=== PATIENT | female | born 1990 | race Caucasian/White ===

== ENCOUNTER 2017-04-05 00:23 | Emergency (ER) | payer OTHER ==
--- NOTE | 2017-04-05 03:20 | ED CLINICAL REPORT ---
Clinical Report - Physicians/Mid Levels [facility] [address] [place] [place] [address] 04/05/2017 0:24 Patient: ANTHONY THOMAS Time Seen: 00:26. Arrived- By ambulance. Historian- patient and EMS personnel. HISTORY OF PRESENT ILLNESS Chief Complaint: Injury to the left ankle. The injury happened just prior to arrival. The patient sustained a twisting injury. Occurred at home. Patient is experiencing severe pain. Patient denies injury to the head or neck. No other injury. REVIEW OF SYSTEMS The patient complains of pain on weight bearing. She has had swelling. No weakness, suspected foreign body or skin laceration. All systems otherwise negative, except as recorded above. PAST HISTORY See nurses notes. Surgeries: No history of previous surgery. Additional Surgeries: no known surgeries. Medications: None. Allergies: No Known Drug Allergy. SOCIAL HISTORY Smoker- current status unknown. Occasional alcohol use. Last drink was just prior to arrival. Under the influence in E.D. No drug use. Is a local resident. ADDITIONAL NOTES The nursing notes have been reviewed. PHYSICAL EXAM Vital Signs: 04/05/2017 00:29 BP: 129/80. HR: 98. RR: 20. O2 saturation: 100%. Temp: 98.9 F. Pain level now: 7/10. Appearance: Alert. Oriented X3. Patient in moderate distress. Head: Head atraumatic. Eyes: Pupils equal, round and reactive to light. Eyes normal inspection. No scleral icterus or pale conjunctivae. ENT: Pharynx normal. No injury to the nose. No pharyngeal erythema or tonsillar exudate. The mucous membranes are not dry. Neck: Normal inspection. Neck supple. C-spine non-tender. CVS: Normal heart rate and rhythm. Heart sounds normal. Pulses normal. Respiratory: No respiratory distress. Breath sounds normal. Chest nontender. Abdomen: No visible injury. Soft and nontender. Back: Normal inspection. No tenderness. ROM normal. Skin: Skin intact. Skin warm and dry. Extremities: Left ankle: moderate tenderness and swelling and small ecchymosis localized to the lateral ligaments and malleolus, medial ligaments and malleolus, anterior ankle and proximal foot. Limited ROM secondary to pain. Neurovascular intact distally. No foreign body. No foot injury. Extremities otherwise negative. ( no proximal fibular tenderness). Gait: Gait not tested due to pain. Neuro, Vascular and Tendons: Vascular status intact. Sensation intact. Motor intact. Neuro: Oriented X 3. No motor deficit. LABS, X-RAYS, AND EKG Lt Ankle X-ray: (possible posterior malleolus fracture). Views: AP, lateral, mortise and oblique. Technique: good. The X-rays were interpreted contemporaneously by me. Note - Special Studies: CT left ankle without contrast: There is anterior as well as lateral greater than medial malleolar soft tissue swelling. There is a lucency within the posterior malleolus as well as a mild depression of the posterior distal tibial articular surface. A nondisplaced posterior malleolar fx is not excluded. Pt has a normal variant os trigonum. There is cortical irregularity assoc with post tibialis and os trigonum suggestive of degenerative changes. benign appearing area of increased density within the anterolateral distal tibial metaphysis. Note - Tests: (Breathalyzer: 0.112). PROGRESS AND PROCEDURES Splint Application: Posterior short leg fiberglass splint applied to left lower extremity. Splint applied by tech with direct supervision by the ED physician. Reassessed extremity following splint application. Neurovascular intact. Course of Care: Dilaudid 1 mg with Phenergan 25 mg IM given. Subtle fracture likely on plain film - CT performed and suggests posterior malleolus fx but not definitive. Pt splinted and will be nonweightbearing Patient is stable. Physical exam findings are improved. Symptoms much better. Patient/family counseled. Old ED records reviewed. Disposition: Discharged. Condition: stable and improved. CLINICAL IMPRESSION Sprain of the tibiofibular, calcaneofibular, deltoid and talofibular ligament of the left ankle. Uncomplicated alcohol intoxication. Possible closed non-displaced right medial malleolus fracture (possible posterior malleolus fracture). Fall from stairs and on same level by tripping. INSTRUCTIONS Apply ice. Use crutches until better and until released. Wear fiberglass splint until released. Elevate affected areas above chest level. Do not work for three days. Warnings: GENERAL WARNINGS: Return or contact your physician immediately if your condition worsens or changes unexpectedly, if not improving as expected, or if other problems arise. Prescription Medications: Hydrocodone/APAP 5mg / 325mg: take 1-2 orally every 8 hours as needed for pain. Dispense ten (10). No refill. OTC Medications: Acetaminophen (available over the counter): take according to label instructions. Motrin (available over the counter): take according to label instructions. Follow-up: Follow up with your doctor tomorrow. Follow-up with: Primo Handley M.D., Ortho, , [address], [facility] [address] Follow up in about two days. Follow-up with: Tacho Bosch DPM, Podiatry, , [address], [facility] [address] Follow up in about two days as needed. (Electronically signed by Travon Kinsey DO 04/06/2017 8:24)
--- NOTE | 2017-04-05 03:20 | ED CLINICAL REPORT ---
Clinical Report - Physicians/Mid Levels [facility] [address] [place] [address] 04/05/2017 0:24 Patient: ANTHONY THOMAS Time Seen: 00:26. Arrived- By ambulance. Historian- patient and EMS personnel. HISTORY OF PRESENT ILLNESS Chief Complaint: Injury to the left ankle. The injury happened just prior to arrival. The patient sustained a twisting injury. Occurred at home. Patient is experiencing severe pain. Patient denies injury to the head or neck. No other injury. REVIEW OF SYSTEMS The patient complains of pain on weight bearing. She has had swelling. No weakness, suspected foreign body or skin laceration. All systems otherwise negative, except as recorded above. PAST HISTORY See nurses notes. Surgeries: No history of previous surgery. Additional Surgeries: no known surgeries. Medications: None. Allergies: No Known Drug Allergy. SOCIAL HISTORY Smoker- current status unknown. Occasional alcohol use. Last drink was just prior to arrival. Under the influence in E.D. No drug use. Is a local resident. ADDITIONAL NOTES The nursing notes have been reviewed. PHYSICAL EXAM Vital Signs: 04/05/2017 00:29 BP: 129/80. HR: 98. RR: 20. O2 saturation: 100%. Temp: 98.9 F. Pain level now: 7/10. Appearance: Alert. Oriented X3. Patient in moderate distress. Head: Head atraumatic. Eyes: Pupils equal, round and reactive to light. Eyes normal inspection. No scleral icterus or pale conjunctivae. ENT: Pharynx normal. No injury to the nose. No pharyngeal erythema or tonsillar exudate. The mucous membranes are not dry. Neck: Normal inspection. Neck supple. C-spine non-tender. CVS: Normal heart rate and rhythm. Heart sounds normal. Pulses normal. Respiratory: No respiratory distress. Breath sounds normal. Chest nontender. Abdomen: No visible injury. Soft and nontender. Back: Normal inspection. No tenderness. ROM normal. Skin: Skin intact. Skin warm and dry. Extremities: Left ankle: moderate tenderness and swelling and small ecchymosis localized to the lateral ligaments and malleolus, medial ligaments and malleolus, anterior ankle and proximal foot. Limited ROM secondary to pain. Neurovascular intact distally. No foreign body. No foot injury. Extremities otherwise negative. ( no proximal fibular tenderness). Gait: Gait not tested due to pain. Neuro, Vascular and Tendons: Vascular status intact. Sensation intact. Motor intact. Neuro: Oriented X 3. No motor deficit. LABS, X-RAYS, AND EKG Lt Ankle X-ray: (possible posterior malleolus fracture). Views: AP, lateral, mortise and oblique. Technique: good. The X-rays were interpreted contemporaneously by me. Note - Special Studies: CT left ankle without contrast: There is anterior as well as lateral greater than medial malleolar soft tissue swelling. There is a lucency within the posterior malleolus as well as a mild depression of the posterior distal tibial articular surface. A nondisplaced posterior malleolar fx is not excluded. Pt has a normal variant os trigonum. There is cortical irregularity assoc with post tibialis and os trigonum suggestive of degenerative changes. benign appearing area of increased density within the anterolateral distal tibial metaphysis. Note - Tests: (Breathalyzer: 0.112). PROGRESS AND PROCEDURES Splint Application: Posterior short leg fiberglass splint applied to left lower extremity. Splint applied by tech with direct supervision by the ED physician. Reassessed extremity following splint application. Neurovascular intact. Course of Care: Dilaudid 1 mg with Phenergan 25 mg IM given. Subtle fracture likely on plain film - CT performed and suggests posterior malleolus fx but not definitive. Pt splinted and will be nonweightbearing Patient is stable. Physical exam findings are improved. Symptoms much better. Patient/family counseled. Old ED records reviewed. Disposition: Discharged. Condition: stable and improved. CLINICAL IMPRESSION Sprain of the tibiofibular, calcaneofibular, deltoid and talofibular ligament of the left ankle. Uncomplicated alcohol intoxication. Possible closed non-displaced right medial malleolus fracture (possible posterior malleolus fracture). Fall from stairs and on same level by tripping. INSTRUCTIONS Apply ice. Use crutches until better and until released. Wear fiberglass splint until released. Elevate affected areas above chest level. Do not work for three days. Warnings: GENERAL WARNINGS: Return or contact your physician immediately if your condition worsens or changes unexpectedly, if not improving as expected, or if other problems arise. Prescription Medications: Hydrocodone/APAP 5mg / 325mg: take 1-2 orally every 8 hours as needed for pain. Dispense ten (10). No refill. OTC Medications: Acetaminophen (available over the counter): take according to label instructions. Motrin (available over the counter): take according to label instructions. Follow-up: Follow up with your doctor tomorrow. Follow-up with: Primo Handley M.D., Ortho, , [address], [facility] [address] Follow up in about two days. Follow-up with: Tacho Bosch DPM, Podiatry, , [address], [facility] [address] Follow up in about two days as needed. (Electronically signed by Travon Kinsey DO 04/06/2017 8:24)
--- NOTE | 2017-04-05 03:20 | ED ORDER SUMMARY ---
..... Patient: ANTHONY THOMAS OrderSheet [facility] VisitID: [id number] [place] [address] 26y, F Registration Date/Time: 04/05/2017 ORDER SHEET Weight: 108.8 kg (estimated) Allergies: No Known Drug Allergy GENERAL ORDERS: Ankle 3 or 4V Left Urgent (00:27 04/05/2017 PHutchinson DO) (Ack 0:29 RKaruga) (1:19 RFay) Breathalyzer (00:29 04/05/2017 PHutchinson DO) (1:16 RKaruga) CT Lower Extremity Without Contrast - Left (left ankle / distal tib/fib) Urgent (01:32 04/05/2017 PHWhereoscopeson DO) (Ack 1:35 RKaruga) (2:13 RFay) Splint (LE) (Left) (Short Leg Posterior) (Fiberglass) (03:16 04/05/2017 PHWhereoscopeson DO) Crutches (03:17 04/05/2017 PHNanoMedical Systemschinson DO) MEDICATION ORDERS: Acetaminophen PO 1,000 mg (NOW) (00:26 04/05/2017 PHWhereoscopeson DO) (Cancelled: Other0:[address] [facility]) Dilaudid IM 1 mg (HIGH ALERT MEDICATION, NOW) (00:31 04/05/[address] [facility]) (0:47 SSambou R.N.) Phenergan IM 25 mg (HIGH ALERT MEDICATION, NOW) (00:31 04/05/[address] [facility]) (0:47 SSambou R.N.) IV FLUIDS: ORDER SHEET NOTES: [Electronically signed by Sheriff Barbie Garnett (04:35 04/05/2017)] [Electronically signed by Travon Kinsey DO (08:24 04/06/2017)] [Electronically locked/signed by Sheriff Barbie Garnett (04:35 04/05/2017)]
--- NOTE | 2017-04-05 03:20 | ED NURSING NOTES ---
Clinical Report - Nurses [place] [address] [place] [address] 04/05/2017 0:24 Patient: ANTHONY THOMAS TRIAGE Triage time 00:31. Acuity: LEVEL 3. Chief Complaint: INJURY TO LEFT ANKLE. --00:39 Sheriff Garnett R.N. 00:29 04/05/17. BP: 129/80. HR: 98. RR: 20. O2 saturation: 100%. Temp: 98.9 F. Pain level now: 04/10. --00:39 Sheriff Garnett R.N. Weight: 108.8 kg estimated. Height/Length: 71 inches Per Patient. BMI: 33.5. --00:29 Sheriff Garnett R.N. Medications None. --00:37 Sheriff Garnett R.N. Allergies No Known Drug Allergy. --00:37 Sheriff Garnett R.N. History Arrived by private vehicle. Historian: patient. Accompanied by friend. This occurred (1 1/2 hours ago). Occurred at friend's house. ( missed a step and fell on left ankle.). PAST MEDICAL HX: Tetanus status: unknown. SURGERY HX: No history of previous surgery. SOCIAL HX: Smoker- current status unknown (3 cigarettes daily). Occasional alcohol use. No drug use. FALL RISK ASSESSMENT: Fall risk assessment completed. No fall risk identified. NUTRITIONAL RISK ASSESSMENT: The nutritional risk assessment revealed no deficiencies. FUNCTIONAL ASSESSMENT: Functional assessment: no impairments noted. LEARNING NEEDS ASSESSMENT: The learning needs assessment revealed no barriers. SKIN INTEGRITY ASSESSMENT: Skin integrity risk assessment completed. No skin integrity risk identified. --00:39 Sheriff Garnett R.N. PROBLEMS: Hypothyroidism. --00:38 Sheriff Garnett R.N. PHYSICAL ASSESSMENT To room via stretcher. GENERAL / NEURO / PSYCH: Oriented X 4. Appears in pain. EXTREMITIES: Capillary refill is less than 2 seconds in the extremities. Left posterior ankle: tenderness and swelling and lateral ankle: tenderness and swelling. SKIN: Skin intact. Skin is warm and dry. --00:52 Sheriff Garnett R.N. NURSING PROGRESS NOTES 00:47 04/05/2017 Dilaudid (HYDROmorphone HCl PF) IM 1 mg given. Given in the left deltoid. Allergies verified, confirmed 5 rights and sedative warning given to the patient. --00:47 Sheriff Garnett R.N. 00:47 04/05/2017 Phenergan (Promethazine HCl) IM 25 mg given. Given in the right deltoid. Allergies verified, confirmed 5 rights and sedative warning given to the patient. --00:47 Sheriff Garnett R.N. Two patient identifiers checked. Call light placed in reach. Side rails up x 2. Bed placed in lowest position. Brakes of bed on. --00:52 Sheriff Garnett R.N. BREATHALYZER: Breathalyzer (.112%). --01:17 Yanique Souza Short leg posterior fiberglass lower extremity splint applied to left ankle and foot by tech. Distal pulses intact, sensation intact and motor within normal limits. Patient fit with new crutches. Crutch training performed by tech; the patient demonstrated proper use. --04:06 Yanique Souza 04:25. ( Patient transported via wheelchair to car after discharge from ED). --04:31 Yanique Souza. DISPOSITION / DISCHARGE Condition at departure: stable. No learning barriers present. Discharge instructions provided and reviewed with the patient. Reviewed medication(s) side effects, precautions, dosing and course information. Prescription(s) given to the parent. Patient verbalized understanding. Written instructions provided in Bulgarian. --04:34 Sheriff Garnett R.N. Locked/Released at 04/05/2017 4:35 by Sheriff Garnett R.N.
--- NOTE | 2017-04-05 03:20 | ED ORDER SUMMARY ---
..... Patient: ANTHONY THOMAS OrderSheet [facility] VisitID: [id number] [place] [address] 26y, F Registration Date/Time: 04/05/2017 ORDER SHEET Weight: 108.8 kg (estimated) Allergies: No Known Drug Allergy GENERAL ORDERS: Ankle 3 or 4V Left Urgent (00:27 04/05/2017 PHutchinson DO) (Ack 0:29 RKaruga) (1:19 RFay) Breathalyzer (00:29 04/05/2017 PHutchinson DO) (1:16 RKaruga) CT Lower Extremity Without Contrast - Left (left ankle / distal tib/fib) Urgent (01:32 04/05/2017 PHShowEvidenceson DO) (Ack 1:35 RKaruga) (2:13 RFay) Splint (LE) (Left) (Short Leg Posterior) (Fiberglass) (03:16 04/05/2017 PHShowEvidenceson DO) Crutches (03:17 04/05/2017 PHVermont Transcochinson DO) MEDICATION ORDERS: Acetaminophen PO 1,000 mg (NOW) (00:26 04/05/2017 PHShowEvidenceson DO) (Cancelled: Other0:31 [facility] DO) Dilaudid IM 1 mg (HIGH ALERT MEDICATION, NOW) (00:31 04/05/2017 [facility] DO) (0:47 SSambou R.N.) Phenergan IM 25 mg (HIGH ALERT MEDICATION, NOW) (00:31 04/05/2017 [facility] DO) (0:47 SSambou R.N.) IV FLUIDS: ORDER SHEET NOTES: [Electronically signed by Sheriff Barbie Garnett (04:35 04/05/2017)] [Electronically signed by Travon Kinsey DO (08:24 04/06/2017)] [Electronically locked/signed by Sheriff Barbie Garnett (04:35 04/05/2017)]
--- NOTE | 2017-04-05 06:42 | DIAGNOSTIC IMAGING REPORT ---
PROCEDURE: XR ANKLE 3 OR 4 VIEWS - LEFT INDICATION: TRAUMA/INJURY TECHNIQUE: Four views. COMPARISON: None. FINDINGS: No fracture or dislocation. Normal ankle mortise. 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 Moderate soft tissue swelling laterally. IMPRESSION: 1. Soft tissue swelling laterally
--- NOTE | 2017-04-05 07:23 | DIAGNOSTIC IMAGING REPORT ---
PROCEDURE: CT LOWER EXT W/O CONTRAST-LEFT INDICATION: TRAUMA/INJURY TECHNIQUE: Axial scans with coronal and sagittal re-formations. COMPARISON: Left ankle x-ray 04/05/2017. FINDINGS: There is marked soft tissue swelling laterally. There is no acute fracture. Os trigonum with subcortical cystic changes of the os trigonum and posterior aspect of the talus consistent with degenerative changes. Benign sclerotic lesion in the distal tibial metaphysis. IMPRESSION: 1. Soft tissue swelling 2. No evidence of an acute fracture 3. Os trigonum with degenerative changes 4. Preliminary results submitted by Dr. Nicholson, [facility] radiology.
--- NOTE | 2017-04-06 08:24 | ED MED RECONCILIATION SUMMARY ---
Patient: ANTHONY THOMAS Medication Reconciliation Report [facility] VisitID: [id number] [place] [address] 26y, F Registration Date/Time: 04/05/2017 Weight: 108.8 kg Height/Length: 71 in. BMI: 33.5 ALLERGIES: No Known Drug Allergy The patient's Home Medications are listed below: NONE. The source(s) of the original Home Medication information: Not obtained. The following Medications were given to the patient in the Emergency Department: Dilaudid [IM] IM 1 mg, administered: 04/05/2017 12:47:00 AM Phenergan [IM] IM 25 mg, administered: 04/05/2017 12:47:00 AM The following Medications were prescribed to the patient: Acetaminophen (available over the counter): take according to label instructions. -- Travon Kinsey DO Motrin (available over the counter): take according to label instructions. -- Travon Kinsey DO Hydrocodone/APAP 5mg / 325mg: take 1-2 orally every 8 hours as needed for pain. Dispense ten (10). No refill. -- Travon Kinsey DO
--- NOTE | 2017-04-06 08:24 | ED MAR SUMMARY ---
..... Medication Administration Record [facility] [address] [place] [address] Patient: ANTHONY THOMAS Visit ID: [id number] 26y, F Weight: 108.8 kg Height/Length: 71 in BMI: 33.5 ALLERGIES: No Known Drug Allergy Given 00:47 04/05/2017 Sheriff Tamir, RJasonN. Medication Administered: DILAUDID [IM] (HYDROMORPHONE HCL PF), Dose: 1 mg IM. Medication Ordered: Dilaudid IM 1 mg (HIGH ALERT MEDICATION, NOW). Given 00:47 04/05/2017 Sheriff Tamir, R.N. Medication Administered: PHENERGAN [IM] (PROMETHAZINE HCL), Dose: 25 mg IM. Medication Ordered: Phenergan IM 25 mg (HIGH ALERT MEDICATION, NOW).
--- NOTE | 2017-04-06 08:24 | ED DISCHARGE INSTRUCTIONS ---
Patient: ANTHONY THOMAS General Instructions [facility] VisitID: [id number] [address] [place] [address] 26y, F Registration Date/Time: 04/05/2017 Sprain of the tibiofibular, calcaneofibular, deltoid and talofibular ligament of the left ankle. Uncomplicated alcohol intoxication. Fall from stairs and on same level by tripping. INSTRUCTIONS Apply ice. Use crutches until better and until released. Wear fiberglass splint until released. Elevate affected areas above chest level. Do not work for three days. Warnings: GENERAL WARNINGS: Return or contact your physician immediately if your condition worsens or changes unexpectedly, if not improving as expected, or if other problems arise. Prescription Medications: Hydrocodone/APAP 5mg / 325mg: take 1-2 orally every 8 hours as needed for pain. Dispense ten (10). No refill. OTC Medications: Acetaminophen (available over the counter): take according to label instructions. Motrin (available over the counter): take according to label instructions. Follow-up: Follow up with your doctor tomorrow. Follow-up with: Primo Handley M.D., Ortho, , [address], [facility] [id number] Follow up in about two days. Follow-up with: Tacho Bosch DPM, Podiatry, , [address] [facility], [place] [phone] Follow up in about two days as needed. ADDITIONAL INFORMATION Mechanical Fall You have had a fall today. It appears that the cause is mechanical. That means that you slipped, tripped or lost your balance. If your fall had been due to fainting or a seizure, further tests would be required. Home Care: Rest today and resume your normal activities when you are feeling back to normal. If you were injured during the fall, follow the advice from your doctor regarding care of your injury. You may use acetaminophen (Tylenol) or ibuprofen (Motrin, Advil) to control pain, unless another pain medicine was prescribed. [NOTE: If you have chronic liver or kidney disease or ever had a stomach ulcer or GI bleeding, talk with your doctor before using these medicines.] Fall Prevention: Was there anything that caused your fall that can be fixed, removed, or replaced? Make your home safe by keeping walkways clear of objects you may trip over. Use non-slip pads under rugs. Do not walk in poorly lit areas. Do not stand on chairs or wobbly ladders. Use caution when reaching overhead or looking upward. This position can cause a loss of balance. Be sure your shoes fit properly, have non-slip bottoms and are in good condition. Be cautious when going up and down curbs, and walking on uneven sidewalks. If your balance is poor, consider using a cane or walker. Stay as active as you can. Balance, flexibility, strength, and endurance all come from exercise. They all play a role in preventing falls. Follow Up with your doctor or as advised by our staff. Get Prompt Medical Attention if any of the following occur: Repeated mechanical falls, or unexplained falls Dizziness, fainting or seizure Severe headache Chest pain or shortness of breath Palpitations (very rapid or very slow or irregular heartbeat) Blood in vomit, stools (black or red color) Weakness of an arm or leg or one side of the face Difficulty with speech or vision Sprain, Ankle,With X-Ray A sprain is an injury to the ligaments or capsule that holds a joint together. There are no broken bones. Most sprains take from four to six weeks to heal. If the ligament is completely torn (severe sprain), it can take several months to recover. Mild to moderate sprains may be treated with an elastic wrap or an in-shoe splint to provide support and prevent re-injury. A mild sprain may not require any additional support. A severe sprain may require surgery to repair. Home care The following guidelines will help you care for your injury at home: Stay off the injured leg as much as possible until you can walk on it without pain. If you have a lot of pain with walking, crutches or a walker may be prescribed. (These can be rented or purchased at many pharmacies and surgical or orthopedic supply stores). Follow your doctor's advice regarding when to begin bearing weight on that leg. Keep your leg elevated to reduce pain and swelling. When sleeping, place a pillow under the injured leg. When sitting, support the injured leg so it is level with your waist. This is very important during the first 48 hours. Apply an ice pack (ice cubes in a plastic bag, wrapped in a towel) over the injured area for 20 minutes every 12 hours the first day. You can place the ice pack directly over the splint/cast. If you were given a boot, open it to apply the ice pack. Continue with ice packs 34 times a day for the next two days, then as needed for the relief of pain and swelling. You may use acetaminophen or ibuprofen to control pain, unless another pain medicine was prescribed. If you have chronic liver or kidney disease or ever had a stomach ulcer or GI bleeding, talk with your doctor before using these medicines. You may return to sports after healing, when you can run without pain. A sprained ankle is at risk for re-injury during the first six weeks. During that time, protect your ankle with an in-shoe splint that prevents tilting of your ankle from side to side. This is very important if you do active work or play sports during that time. Follow-up care Any X-rays you had today dont show any broken bones, breaks, or fractures. Sometimes fractures dont show up on the first X-ray. Bruises and sprains can sometimes hurt as much as a fracture. These injuries can take time to heal completely. If your symptoms dont improve or they get worse, talk with your doctor. You may need a repeat X-ray. When to seek medical care Get prompt medical attention if any of the following occur: The plaster cast or splint gets wet or soft The fiberglass cast or splint gets wet and does not dry for 24 hours Pain or swelling increases, or redness appears Toes become cold, blue, numb or tingly Re-injure your ankle Alcohol Intoxication Alcohol intoxication occurs when you drink alcohol faster than your liver can remove it from your system. Alcohol intoxication affects your judgment and coordination. Very high blood alcohol levels can cause coma, very slow breathing and even . If you drink alcohol every day, this may gradually cause permanent damage to your liver, brain, heart, pancreas and other organs. Alcohol use during may cause permanent damage to the growing baby. Home Care: Do not drink any more alcohol. DO NOT DRIVE until all effects of the alcohol have worn off. Get lots of rest over the next few days. Drink plenty of water and other non-alcoholic liquids. Try to eat regular meals. If you have been drinking heavily on a daily basis, you may go through alcohol withdrawl. This is also called the shakes or DTs. The usual symptoms last 3 to 4 days and may include nervousness, shakiness, nausea, sweating or sleeplessness. During this time, it is best that you stay with family or friends who can help and support you. You can also admit yourself to a residential detox program. If your symptoms are severe, contact your doctor for medicines to help. Follow Up: If alcohol is causing a problem in your life, these and other organizations can help you: Alcoholics Anonymous offers support through a self-help fellowship. There are no dues or fees. See the Yellow Pages and call for time and place of meetings. www.aa.org [employer] offers support to families of alcohol users. 258.689.9809 www.al-anon.org [employer] [place] [employer] 900-696-6254 www.ncadd.org There are also inpatient or residential alcohol detox programs. Check the Internet or phonebook Yellow Pages under Drug Abuse & Treatment Centers. Get Prompt Medical Attention if any of the following occur: there) Crutch Walking Crutch Adjustment Make sure the crutches you use are adjusted to fit you. When you stand, there should be room to fit 2-3 fingers between the top of the crutch and your armpit. Your elbow should be slightly bent when holding the hand mechanical press operator. Crutch Walking: Place the crutches forward 12" in front of and 6" to the side of your feet. Lean your weight forward as you push down on the handgrips. Your weight should be on your hands and yourstrong leg, not your armpits . Let your body swing through, landing on the strong leg. Advance the crutches forward again. The crutch and the injured leg should move together. Going Up Steps: ("Up with the good") With both crutches on the same step as your feet, push down on the handgrips. Balancing with very light pressure on the weak leg, let your hands support your weight as you raise your strong leg onto the next higher step. Transfer all your weight to your strong leg (still bent) as you move the crutches up to the next step alongside the strong leg. With your weight evenly balanced on the two crutches and your strong leg, straighten your strong knee as you raise the weak leg up to the next step. Going Down Steps: ("Down with the bad") With both crutches on the same step as your feet, push down on the handgrips. With your weight evenly balanced on the two crutches and your strong leg, bend your strong knee as you lower the weak leg down to the next step. Let your strong leg support you (still bent) as you move the crutches down alongside the weak leg. Transfer your weight to your hands, balancing with very light pressure on the weak leg as you lower your strong leg alongside your weak leg. Splint Care, Fiberglass The following will help you care for your splint: It will take up totwo hours for your fiber glass splint to fully harden; therefore, do notapply any pressure on it during that time or else it may break. To prevent swelling under the splint, for thefirst 48 hours: If the splint is on yourarm, keep it in a sling or raised to shoulder level when sitting or standing; rest it on your chest or on a pillow at your side when lying down. If the splint is on yourfoot, keep it propped up above the level of your waist when sitting or lying. Avoid crutch walking as much as possible during this time. Keep the splint/cast dry at all times. Bathe with your splint/cast well out of the water, protected with a large plastic bag, rubber-banded at the top end. If a fiberglass cast or splint gets wet, you can dry it with a hair-dryer. Follow-up care Follow up with your doctor or this facility as advised. When to seek medical care Get prompt medical attention if any of the following occur: Bad odor from the splint or wound-fluid stains the splint The splint cracks or remains wet over 24 hours Increasing tightness or pressure under the splint Fingers or toes become swollen, cold, blue, numb or tingly Increased pain under the splint Hydrocodone Bitartrate, Acetaminophen Oral tablet What is this medicine? ACETAMINOPHEN; HYDROCODONE (a set a DEEPIKA curtis fen; carmen droe KOE done) is a pain reliever. It is used to treat mild to moderate pain. How should I use this medicine? Take this medicine by mouth. Swallow it with a full glass of water. Follow the directions on the prescription label. If the medicine upsets your stomach, take the medicine with food or milk. Do not take more than you are told to take. Talk to your general road production manager regarding the use of this medicine in children. This medicine is not approved for use in children. What side effects may I notice from receiving this medicine? Side effects that you should report to your doctor or health floor care specialist as soon as possible: allergic reactions like skin rash, itching or hives, swelling of the face, lips, or tongue breathing problems confusion feeling faint or lightheaded, falls stomach pain yellowing of the eyes or skin Side effects that usually do not require medical attention (report to your doctor or health floor care specialist if they continue or are bothersome): nausea, vomiting stomach upset What may interact with this medicine? alcohol antihistamines isoniazid medicines for depression, anxiety, or psychotic disturbances medicines for sleep muscle relaxants naltrexone narcotic medicines (opiates) for pain phenobarbital ritonavir tramadol What if I miss a dose? If you miss a dose, take it as soon as you can. If it is almost time for your next dose, take only that dose. Do not take double or extra doses. Where should I keep my medicine? Keep out of the reach of children. This medicine can be abused. Keep your medicine in a safe place to protect it from theft. Do not share this medicine with anyone. Selling or giving away this medicine is dangerous and against the law. Store at room temperature between 15 and 30 degrees C (59 and 86 degrees F). Protect from light. Keep container tightly closed. Throw away any unused medicine after the expiration date. Discard unused medicine and used packaging carefully. Pets and children can be harmed if they find used or lost packages. What should I tell my health care provider before I take this medicine? They need to know if you have any of these conditions: brain tumor Crohn's disease, inflammatory bowel disease, or ulcerative colitis drink more than 3 alcohol-containing drinks per day drug abuse or addiction head injury heart or circulation problems kidney disease or problems going to the bathroom liver disease lung disease, asthma, or breathing problems an unusual or allergic reaction to acetaminophen, hydrocodone, other opioid analgesics, other medicines, foods, dyes, or preservatives or trying to get breast-feeding What should I watch for while using this medicine? Tell your doctor or health floor care specialist if your pain does not go away, if it gets worse, or if you have new or a different type of pain. You may develop tolerance to the medicine. Tolerance means that you will need a higher dose of the medicine for pain relief. Tolerance is normal and is expected if you take the medicine for a long time. Do not suddenly stop taking your medicine because you may develop a severe reaction. Your body becomes used to the medicine. This does NOT mean you are addicted. Addiction is a behavior related to getting and using a drug for a non-medical reason. If you have pain, you have a medical reason to take pain medicine. Your doctor will tell you how much medicine to take. If your doctor wants you to stop the medicine, the dose will be slowly lowered over time to avoid any side effects. You may get drowsy or dizzy when you first start taking the medicine or change doses. Do not drive, use machinery, or do anything that may be dangerous until you know how the medicine affects you. Stand or sit up slowly. There are different types of narcotic medicines (opiates) for pain. If you take more than one type at the same time, you may have more side effects. Give your health care provider a list of all medicines you use. Your doctor will tell you how much medicine to take. Do not take more medicine than directed. Call emergency for help if you have problems breathing. The medicine will cause constipation. Try to have a bowel movement at least every 2 to 3 days. If you do not have a bowel movement for 3 days, call your doctor or health floor care specialist. Too much acetaminophen can be very dangerous. Do not take Tylenol (acetaminophen) or medicines that contain acetaminophen with this medicine. Many non-prescription medicines contain acetaminophen. Always read the labels carefully. You have been given the following additional information: Fall, Mechanical Sprain, Ankle, With X-Ray Alcohol Intoxication Crutch Walking Splint Care, Fiberglass Hydrocodone Bitartrate, Acetaminophen Oral tablet Do not work for three days. (Electronically signed by Travon Kinsey DO 04/06/2017 8:24)
--- NOTE | 2017-04-06 08:24 | ED MAR SUMMARY ---
..... Medication Administration Record [facility] [address] [place] [address] Patient: ANTHONY THOMAS Visit ID: [id number] 26y, F Weight: 108.8 kg Height/Length: 71 in BMI: 33.5 ALLERGIES: No Known Drug Allergy Given 00:47 04/05/2017 Sheriff Tamir, RJasonN. Medication Administered: DILAUDID [IM] (HYDROMORPHONE HCL PF), Dose: 1 mg IM. Medication Ordered: Dilaudid IM 1 mg (HIGH ALERT MEDICATION, NOW). Given 00:47 04/05/2017 Sheriff Tamir, R.N. Medication Administered: PHENERGAN [IM] (PROMETHAZINE HCL), Dose: 25 mg IM. Medication Ordered: Phenergan IM 25 mg (HIGH ALERT MEDICATION, NOW).
--- NOTE | 2017-04-06 08:24 | ED MED RECONCILIATION SUMMARY ---
Patient: ANTHONY THOMAS Medication Reconciliation Report [facility] VisitID: [id number] [place] [address] 26y, F Registration Date/Time: 04/05/2017 Weight: 108.8 kg Height/Length: 71 in. BMI: 33.5 ALLERGIES: No Known Drug Allergy The patient's Home Medications are listed below: NONE. The source(s) of the original Home Medication information: Not obtained. The following Medications were given to the patient in the Emergency Department: Dilaudid [IM] IM 1 mg, administered: 04/05/2017 12:47:00 AM Phenergan [IM] IM 25 mg, administered: 04/05/2017 12:47:00 AM The following Medications were prescribed to the patient: Acetaminophen (available over the counter): take according to label instructions. -- Travon Kinsey DO Motrin (available over the counter): take according to label instructions. -- Travon Kinsey DO Hydrocodone/APAP 5mg / 325mg: take 1-2 orally every 8 hours as needed for pain. Dispense ten (10). No refill. -- Travon Kinsey DO
== END 2017-04-05 04:20 | disposition home or self-care (01) ==
LOC: ED SRH 00:23
DX: S93.412A Sprain of calcaneofibular ligament of left ankle, initial encounter (principal); S93.422A Sprain of deltoid ligament of left ankle, initial encounter; S93.492A Sprain of other ligament of left ankle, initial encounter; F10.120 Alcohol abuse with intoxication, uncomplicated; Y90.5 Blood alcohol level of 100-119 mg/100 ml; X50.1XXA Overexertion from prolonged static or awkward postures, initial encounter; W10.9XXA Fall (on) (from) unspecified stairs and steps, initial encounter; Y99.8 Other external cause status; Y92.009 Unspecified place in unspecified non-institutional (private) residence as the place of occurrence of the external cause; Y93.01 Activity, walking, marching and hiking